=== PATIENT | male | born 1950 ===

== ENCOUNTER 2017-06-15 07:54 | Observation (INO) | payer MEDICARE, BC, OTHER ==
[2017-06-15] MEDS ORDERED: Sodium Chloride 0.9% 1,000 ML IV STA (08:19)
--- NOTE | 2017-06-15 08:44 | CT ---
PROCEDURE: CT HEAD WITHOUT CONTRAST. HISTORY: syncope COMPARISON: None available. TECHNIQUE: Axial computed tomography images were obtained through the head/brain without intravenous contrast. Radiation dose: Total exam DLP = 883.4 mGy-cm. This CT exam was performed using one or more of the following dose reduction techniques: Automated exposure control, adjustment of the mA and/or kV according to patient size, and/or use of iterative reconstruction technique. FINDINGS: HEMORRHAGE: No intracranial hemorrhage. BRAIN: No mass effect or edema. No atrophy or chronic microvascular ischemic changes. VENTRICLES: Unremarkable. No hydrocephalus. CALVARIUM: Unremarkable. PARANASAL SINUSES: Unremarkable as visualized. No significant inflammatory changes. MASTOID AIR CELLS: Unremarkable as visualized. No inflammatory changes. OTHER FINDINGS: None. IMPRESSION: No acute intracranial pathology.
[2017-06-15 09:26] LABS: BASO # 0.1 K/uL (0.0-0.2); BASO % 0.8 % (0.0-2.0); EOS # 0.4 K/uL (0.0-0.7); EOS % 4.8 % (0.0-4.0); HEMOGLOBIN 13.2 g/dL (12.0-18.0); LYMPH # 1.2 K/uL (1.0-4.3); MEAN CELL VOLUME 91.9 fl (80.0-94.0); MEAN CORPUSCULAR HEMOGLOBIN 31.2 pg (27.0-31.0); MEAN CORPUSCULAR HGB CONC 33.9 g/dL (33.0-37.0); MEAN PLATELET VOLUME 7.6 fl (7.2-11.7); MONO # 0.6 K/uL (0.0-0.8); MONO % 7.1 % (0.0-10.0); NEUT # 5.9 K/uL (1.8-7.0); NEUT % 72.3 % (50.0-75.0); RBC 4.23 Mil/uL (4.40-5.90); WHITE BLOOD COUNT 8.1 K/uL (4.8-10.8)
[2017-06-15 09:39] LABS: ALB/GLOB RATIO 1.3 (1.0-2.1); ALBUMIN 4.1 g/dL (3.5-5.0); ALT/SGPT 36 U/L (21-72); AST/SGOT 29 U/L (17-59); BLOOD UREA NITROGEN 25 mg/dl (9-20); CALCIUM 9.9 mg/dL (8.4-10.2); GFR AFRICAN-AMERICAN > 60; GFR NON-AFRICAN AMERICAN > 60
--- NOTE | 2017-06-15 10:44 | ED PDOC ---
Syncope/Near Syncope/Dizziness Time Seen by Provider: 06/15/17 08:11 Chief Complaint (Nursing): Syncope History Per: Patient Onset/Duration Of Symptoms: Hrs (1) Current Symptoms Are (Timing): Better Activity At Onset Of Symptoms: Standing Associated Symptoms Preceding Syncopal Episode: Lightheadedness Fall Associated With With Symptoms: No Additional Complaint(s): Witnessed syncopal episode by lasted 2-3 min. No seizure activity. Pt states felt dizzy/lightheaded prior to episode followed by diaphoresis. Denies chest pain or palpitations or headache. Past Medical History Vital Signs: Last Vital Signs Temp 98 F 06/15/17 09:28 Pulse 52 L 06/15/17 09:28 Resp 18 06/15/17 09:28 BP 124/74 06/15/17 09:28 Pulse Ox 100 06/15/17 09:28 - Medical History PMH: No Chronic Diseases - Family History Family History: States: Unknown Family Hx - Allergies Allergies/Adverse Reactions: Allergies Allergy/AdvReac Type Severity Reaction Status Date / Time No Known Allergies Allergy Verified 06/15/17 08:09 Review of Systems ROS Statement: Except As Marked, All Systems Reviewed And Found Negative Neurological: Positive for: Dizziness, Other (Syncope) Physical Exam - Reviewed Nursing Documentation Reviewed: Yes Vital Signs Reviewed: Yes - Physical Exam Appears: Positive for: Non-toxic, No Acute Distress Head Exam: Positive for: ATRAUMATIC, NORMAL INSPECTION, NORMOCEPHALIC Skin: Positive for: Normal Color, Warm, DRY Eye Exam: Positive for: EOMI, Normal appearance, PERRL ENT: Positive for: Normal ENT Inspection Neck: Positive for: Normal, Painless ROM Cardiovascular/Chest: Positive for: Regular Rate, Rhythm Respiratory: Positive for: CNT, Normal Breath Sounds Gastrointestinal/Abdominal: Positive for: Normal Exam, Bowel Sounds, Soft Back: Positive for: Normal Inspection Extremity: Positive for: Normal ROM Neurologic/Psych: Positive for: Alert, Oriented - Laboratory Results Result Diagrams: 06/15/17 09:15 06/15/17 09:15 - ECG O2 Sat by Pulse Oximetry: 100 Disposition - Clinical Impression Clinical Impression: Syncope - Patient ED Disposition Is Patient to be Admitted: Yes - Disposition Disposition Time: 10:44 Condition: FAIR - Pt Status Changed To: Hospital Disposition Of: Observation - POA Present On Arrival: None
--- NOTE | 2017-06-15 12:58 | RAD ---
HISTORY: syncope COMPARISON: 05/18/2006 TECHNIQUE: Chest PA and lateral FINDINGS: LUNGS: Apical fibronodular changes scarring. PLEURA: Biapical pleural thickening. CARDIOVASCULAR: No radiographic findings to suggest acute or significant cardiovascular disease. OSSEOUS STRUCTURES: No significant abnormalities. VISUALIZED UPPER ABDOMEN: Normal. OTHER FINDINGS: None. IMPRESSION: No active disease. No significant interval change compared to the prior examination(s). Concordant results with the preliminary interpretation rendered by the emergency department physician procedure.
--- NOTE | 2017-06-15 13:58 | CP.PCM.HP ---
<Nicholas Doran - Last Filed: 06/15/17 14:59> History of Present Illness - History of Present Illness History of Present Illness: CC: syncope HPI: 66 y/o man w/ no pmh presents to the ED for witnessed syncope. is at bedside. Patient reports that around 06:30 this morning he got up from bed to use the bathroom but started feeling warm, sweaty, and dizzy. He went towards the window to open it and when he opened the window, he passed out and fell backwards on his . The denies head trauma or other injury to herself or the patient. The patient recalls events prior to and after passing out. The reports that the patient was out for less than 1 minute. The denies tremor, tongue biting, eye rolling, and incontinence. The reports that the patient appeared pale but otherwise was able to sit up on his own. The patient states that this has never happened in the past. The patient denies headaches, chest pain, SOB, nausea, vomiting, diarrhea, dysuria, fever, or recent illness. ED course: vitals: 98.0 F, 52 beats/min, 124/74 mm Hg, resp 18, O2 100% RA CBC: 8.1>13.2/38.9<193 CMP: 140/4.1, 101/27, 25/0.9, glucose 86, AST 29, ALT 36, alk phos 54 troponin: <0.012 CXR: no active disease EKG: sinus bradycardia, no ST segment elevation/depression, no prolonged QT, QRS , or TX, no T wave inversion CT head w/o contrast: no intracranial pathology, no intracranial hemorrhage PMD: Dr. Anthony PMH: none allergies: NKDA meds: multivitamins PSH: nasal polyps removed during childhood FamHx: father age 89, had [place] and stroke in his 50s SOC: denies smoking, alcohol, and drugs ROS: 12 points assessed and negative unless otherwise reported in HPI Present on Admission - Present on Admission Any Indicators Present on Admission: No History of DVT/PE: No History of Uncontrolled Diabetes: No Urinary Catheter: No Decubitus Ulcer Present: No Review of Systems - Review of Systems All systems: reviewed and no additional remarkable complaints except - Constitutional Constitutional: absent: Chills, Fever, Headache - EENT Eyes: absent: Change in Vision - Cardiovascular Cardiovascular: As Per HPI, Diaphoresis. absent: Chest Pain, Edema, Leg Edema, Palpitations - Respiratory Respiratory: absent: Cough, Dyspnea on Exertion, Wheezing - Gastrointestinal Gastrointestinal: absent: Abdominal Pain, Diarrhea, Hematemesis, Hematochezia, Nausea, Vomiting - Genitourinary Genitourinary: absent: Dysuria - Integumentary Integumentary: absent: Rash - Neurological Neurological: As Per HPI. absent: Abnormal Speech, Confusion, Convulsions, Headaches, Loss of Vision, Memory Loss, Vertigo Past Patient History - Past Social History Smoking Status: Never Smoked - PSYCHIATRIC Hx Substance Use: No Meds Allergies/Adverse Reactions: Allergies Allergy/AdvReac Type Severity Reaction Status Date / Time No Known Allergies Allergy Verified 06/15/17 08:09 Physical Exam - Constitutional Appears: No Acute Distress - Head Exam Head Exam: ATRAUMATIC, NORMAL INSPECTION, NORMOCEPHALIC - Eye Exam Eye Exam: Normal appearance - ENT Exam ENT Exam: Mucous Membranes Moist - Neck Exam Neck exam: Positive for: Full Rom. Negative for: Tenderness - Respiratory Exam Respiratory Exam: Clear to Auscultation Bilateral. absent: Decreased Breath Sounds, Rales, Rhonchi, Wheezes, Respiratory Distress - Cardiovascular Exam Cardiovascular Exam: Bradycardia - GI/Abdominal Exam GI & Abdominal Exam: Normal Bowel Sounds, Soft. absent: Distended, Tenderness - Extremities Exam Extremities exam: Positive for: normal capillary refill, normal inspection, pedal pulses present. Negative for: calf tenderness, pedal edema, tenderness - Neurological Exam Neurological exam: Alert, CN II-XII Intact, Oriented x3 - Skin Skin Exam: Dry, Intact, Normal Color, Warm Results - Vital Signs Recent Vital Signs: Last Vital Signs Temp 98 F 06/15/17 11:48 Pulse 65 06/15/17 11:48 Resp 18 06/15/17 11:48 BP 128/75 06/15/17 11:48 Pulse Ox 100 06/15/17 11:48 - Labs Result Diagrams: 06/15/17 09:15 06/15/17 09:15 Labs: Laboratory Results - last 24 hr 06/15/17 06/15/17 06/15/17 08:09 09:15 09:15 WBC 8.1 RBC 4.23 L Hgb 13.2 Hct 38.9 MCV 91.9 MCH 31.2 H MCHC 33.9 RDW 14.0 Plt Count 193 MPV 7.6 Neut % (Auto) 72.3 Lymph % (Auto) 15.0 L [place] % (Auto) 7.1 Eos % (Auto) 4.8 H Baso % (Auto) 0.8 Neut # (Auto) 5.9 Lymph # (Auto) 1.2 [place] # (Auto) 0.6 Eos # (Auto) 0.4 Baso # (Auto) 0.1 Sodium 140 Potassium 4.1 Chloride 101 Carbon Dioxide 27 Anion Gap 16 BUN 25 H Creatinine 0.9 Est GFR ( Amer) > 60 Est GFR (Non-Af Amer) > 60 POC Glucose (mg/dL) 79 Random Glucose 86 Calcium 9.9 Total Bilirubin 0.6 AST 29 ALT 36 Alkaline Phosphatase 54 Troponin I < 0.0120 Total Protein 7.2 Albumin 4.1 Globulin 3.1 Albumin/Globulin Ratio 1.3 Assessment & Plan - Assessment and Plan (Free Text) Assessment: 66 y/o man w/ no pmh presents to the ED for witnessed syncope. Plan: 1) Syncope -witnessed by -no previous episodes -CBC: 8.1>13.2/38.9<193 -CMP: 140/4.1, 101/27, 25/0.9, glucose 86, AST 29, ALT 36, alk phos 54 -troponin: <0.012 -CXR: no active disease -EKG: sinus bradycardia, no ST segment elevation/depression, no prolonged QT, QRS, or TX, no T wave inversion -CT head w/o contrast: no intracranial pathology, no intracranial hemorrhage -IVF NS 1L 100mL/hr -admit to TELE for observation -f/u carotid dopplers -f/u orthostatic BP Q8h -f/u echocardiogram 2) Prophylactic measures -lovenox 40 mg SC daily -regular diet <Sushil Anthony - Last Filed: 06/16/17 06:52> Results - Vital Signs Recent Vital Signs: Last Vital Signs Temp 97.9 F 06/16/17 05:21 Pulse 67 06/16/17 05:21 Resp 18 06/16/17 05:21 BP 135/83 06/16/17 05:21 Pulse Ox 98 06/16/17 05:21 - Labs Result Diagrams: 06/16/17 05:14 06/16/17 05:14 Labs: Laboratory Results - last 24 hr 06/15/17 06/15/17 06/15/17 08:09 09:15 09:15 WBC 8.1 RBC 4.23 L Hgb 13.2 Hct 38.9 MCV 91.9 MCH 31.2 H MCHC 33.9 RDW 14.0 Plt Count 193 MPV 7.6 Neut % (Auto) 72.3 Lymph % (Auto) 15.0 L [place] % (Auto) 7.1 Eos % (Auto) 4.8 H Baso % (Auto) 0.8 Neut # (Auto) 5.9 Lymph # (Auto) 1.2 [place] # (Auto) 0.6 Eos # (Auto) 0.4 Baso # (Auto) 0.1 Sodium 140 Potassium 4.1 Chloride 101 Carbon Dioxide 27 Anion Gap 16 BUN 25 H Creatinine 0.9 Est GFR ( Amer) > 60 Est GFR (Non-Af Amer) > 60 POC Glucose (mg/dL) 79 Random Glucose 86 Calcium 9.9 Total Bilirubin 0.6 AST 29 ALT 36 Alkaline Phosphatase 54 Troponin I < 0.0120 Total Protein 7.2 Albumin 4.1 Globulin 3.1 Albumin/Globulin Ratio 1.3 06/16/17 06/16/17 05:14 05:14 WBC 5.5 RBC 3.73 L Hgb 11.7 L Hct 34.0 L MCV 91.0 MCH 31.3 H MCHC 34.4 RDW 13.9 Plt Count 180 MPV 7.7 Neut % (Auto) 55.3 Lymph % (Auto) 29.1 [place] % (Auto) 8.2 Eos % (Auto) 6.5 H Baso % (Auto) 0.9 Neut # (Auto) 3.1 Lymph # (Auto) 1.6 [place] # (Auto) 0.5 Eos # (Auto) 0.4 Baso # (Auto) 0.1 Sodium 143 Potassium 3.9 Chloride 104 Carbon Dioxide 30 Anion Gap 13 BUN 21 H Creatinine 1.0 Est GFR ( Amer) > 60 Est GFR (Non-Af Amer) > 60 POC Glucose (mg/dL) Random Glucose 88 Calcium 8.9 Total Bilirubin 0.3 AST 24 ALT 27 Alkaline Phosphatase 36 L D Troponin I Total Protein 6.2 L Albumin 3.4 L Globulin 2.8 Albumin/Globulin Ratio 1.2 Attending/Attestation - Attestation I have personally seen and examined this patient.: Yes I have fully participated in the care of the patient.: Yes I have reviewed all pertinent clinical information: Yes
--- NOTE | 2017-06-15 16:21 | US ---
PROCEDURE: Duplex ultrasound of the carotid and vertebral arteries. HISTORY: syncope COMPARISON: None available. TECHNIQUE: Grayscale and duplex Doppler evaluation of the cervical carotid and vertebral arteries were performed. The common carotid, carotid bifurcations and cervical ICA and proximal ECA were evaluated. The vertebral arteries were evaluated for gross patency and direction. FINDINGS: RIGHT CAROTID ARTERIES: Common Carotid Artery: Normal. Maximal flow velocity of 61.4 cm/s. Carotid Bifurcation: Normal. Internal Carotid Artery:Normal. Maximal flow velocity of 58.9 cm/s. External Carotid Artery (proximal branches): Normal. Maximal flow velocity of 54.6 cm/s. ICA/CCA Ratio: 1.0 LEFT CAROTID ARTERIES: Common Carotid Artery: Normal. Maximal flow velocity of 68.2 cm/s. Carotid Bifurcation: Normal. Internal Carotid Artery:Normal. Maximal flow velocity of 73.5 cm/s. External Carotid Artery (proximal branches): Normal. Maximal flow velocity of 67.3 cm/s. ICA/CCA Ratio: 1.1 VERTEBRAL ARTERIES: Right Vertebral Artery: Patent. Antegrade flow. Left Vertebral Artery: Patent. Antegrade flow. OTHER FINDINGS: None. IMPRESSION: Per NASCET criteria, less than 50 percent stenosis of the internal carotid arteries bilaterally.
[2017-06-16 06:25] LABS: BASO # 0.1 K/uL (0.0-0.2); BASO % 0.9 % (0.0-2.0); EOS # 0.4 K/uL (0.0-0.7); EOS % 6.5 % (0.0-4.0); HEMOGLOBIN 11.7 g/dL (12.0-18.0); LYMPH # 1.6 K/uL (1.0-4.3); LYMPH % 29.1 % (20.0-40.0); MEAN CORPUSCULAR HEMOGLOBIN 31.3 pg (27.0-31.0); MEAN CORPUSCULAR HGB CONC 34.4 g/dL (33.0-37.0); MEAN PLATELET VOLUME 7.7 fl (7.2-11.7); MONO # 0.5 K/uL (0.0-0.8); MONO % 8.2 % (0.0-10.0); NEUT # 3.1 K/uL (1.8-7.0); NEUT % 55.3 % (50.0-75.0); NRBC % 0.1 % (0.0-0.0); RBC 3.73 Mil/uL (4.40-5.90); RED CELL DISTRIBUTION WIDTH 13.9 % (11.5-14.5); WHITE BLOOD COUNT 5.5 K/uL (4.8-10.8)
[2017-06-16 06:29] LABS: ALB/GLOB RATIO 1.2 (1.0-2.1); ALBUMIN 3.4 g/dL (3.5-5.0); ALT/SGPT 27 U/L (21-72); AST/SGOT 24 U/L (17-59); BLOOD UREA NITROGEN 21 mg/dl (9-20); CALCIUM 8.9 mg/dL (8.4-10.2); GFR AFRICAN-AMERICAN > 60; GFR NON-AFRICAN AMERICAN > 60
--- NOTE | 2017-06-16 08:05 | CP.PCM.PN ---
Subjective - Date & Time of Evaluation Date of Evaluation: 06/16/17 Time of Evaluation: 07:15 - Subjective Subjective: Patient seen and examined at bedside this morning. There were no acute events overnight. The patient is laying comfortably in bed, NAD. The patient denies headaches, chest pain, dizziness, SOB, abdominal pain, nausea, vomiting, diarrhea, dysuria, or fever. Objective - Vital Signs/Intake and Output Vital Signs (last 24 hours): Temp Pulse Resp BP Pulse Ox 97.9 F 67 18 135/83 98 06/16/17 05:21 06/16/17 05:21 06/16/17 05:21 06/16/17 05:21 06/16/17 05:21 - Medications Medications: Current Medications Enoxaparin Sodium (Lovenox) 40 mg SC DAILY VIDAL PRN Reason: Protocol - Labs Labs: 06/16/17 05:14 06/16/17 05:14 - Constitutional Appears: No Acute Distress - Head Exam Head Exam: ATRAUMATIC, NORMAL INSPECTION, NORMOCEPHALIC - Eye Exam Eye Exam: Normal appearance - ENT Exam ENT Exam: Mucous Membranes Moist - Neck Exam Neck Exam: Full ROM, Normal Inspection. absent: Tenderness - Respiratory Exam Respiratory Exam: Clear to Ausculation Bilateral, NORMAL BREATHING PATTERN. absent: Decreased Breath Sounds, Rales, Rhonchi, Wheezes, Respiratory Distress - Cardiovascular Exam Cardiovascular Exam: REGULAR RHYTHM. absent: Tachycardia - GI/Abdominal Exam GI & Abdominal Exam: Soft, Normal Bowel Sounds. absent: Distended, Tenderness - Extremities Exam Extremities Exam: Full ROM, Normal Inspection. absent: Calf Tenderness, Pedal Edema, Tenderness - Neurological Exam Neurological Exam: Alert, Awake, Oriented x3 - Skin Skin Exam: Dry, Intact, Normal Color, Warm. absent: Rash Assessment and Plan - Assessment and Plan (Free Text) Assessment: 66 y/o man w/ no pmh presents to the ED for witnessed syncope. Plan: 1) Syncope -witnessed by -no previous episodes -CBC: 5.5>11.7/34.0<180 -CMP: 143/3.9, 104/30, 21/1.0, glucose 88, AST 24, ALT 27, alk phos 36 -troponin: <0.012 -CXR: no active disease -EKG: sinus bradycardia, no ST segment elevation/depression, no prolonged QT, QRS, or [place], no T wave inversion -CT head w/o contrast: no intracranial pathology, no intracranial hemorrhage -D/C'ed IVF NS 1L 100mL/hr -carotid dopplers: <50% stenosis of carotids bilaterally -f/u orthostatic BP Q8h -f/u echocardiogram -cardiology consulted, Dr. Morales 2) Prophylactic measures -lovenox 40 mg SC daily -regular diet
[2017-06-16 08:33] VITALS: RESP 20
[2017-06-16] MEDS ORDERED: Enoxaparin 40 mg Syringe SC SCH (09:00)
--- NOTE | 2017-06-16 11:31 | CARD ---
APPROVED REPORT EKG Measurement Heart [id number] <Conclusion> Sinus bradycardia Otherwise normal ECG
[2017-06-16 12:34] VITALS: BP 143/83; PULSE 69; TEMP 98.3; O2SAT 95
--- NOTE | 2017-06-16 12:54 | CARD ---
APPROVED REPORT EXAM: Two-dimensional and M-mode echocardiogram with Doppler and color Doppler. Other Information Quality : GoodRhythm : NSR INDICATION Syncope 2D DIMENSIONS IVSd1.05 (0.7-1.1cm)LVDd4.94 (3.9-5.9cm) LVOT Diameter2.23 (1.8-2.4cm)PWd1.12 (0.7-1.1cm) IVSs1.77 (0.8-1.2cm)LVDs3.57 (2.5-4.0cm) FS (%) 27.7 %PWs1.54 (0.8-1.2cm) M-Mode DIMENSIONS Left Atrium (MM)2.52 (2.5-4.0cm)IVSd0.85 (0.7-1.1cm) Aortic Root3.86 (2.2-3.7cm)LVDd5.71 (4.0-5.6cm) Aortic Cusp Exc.1.93 (1.5-2.0cm)PWd0.77 (0.7-1.1cm) IVSs0.95 cmFS (%) 28 % LVDs4.12 (2.0-3.8cm)PWs1.39 cm Mitral Valve MV E Ogvmcqgf57.9cm/sMV DECEL [id number] A Lmduqmbr82.3cm/s MV WRE76jnD/A ratio1.2MVA (PHT)3.33cm2 TDI Lateral E' Peak V14.26cm/sMedial E' Peak V10.10cm/sE/Lateral E'4.6 E/Medial E'6.4 Tricuspid Valve TR Peak Vlxpvooy678ur/sRAP [id number] Peak Gr.15mmHg [id number] LEFT VENTRICLE The left ventricle is normal size. There is normal left ventricular wall thickness. Left ventricle systolic function is normal. The Ejection Fraction is 60-65%. There is normal LV segmental wall motion. Transmitral Doppler flow pattern is Grade I-abnormal relaxation pattern. RIGHT VENTRICLE The right ventricle is normal size. There is normal right ventricular wall thickness. The right ventricular systolic function is normal. ATRIA The left atrium size is normal. The right atrium size is normal. AORTIC VALVE The aortic valve is normal in structure. No aortic regurgitation is present. There is no aortic valvular stenosis. MITRAL VALVE The mitral valve is normal in structure. There is no evidence of mitral valve prolapse. There is no mitral valve stenosis. Mitral regurgitation is mild. TRICUSPID VALVE The tricuspid valve is normal in structure. There is mild tricuspid regurgitation. Right ventricular systolic pressure is estimated at 15 mmHg. There is no pulmonary hypertension. PULMONIC VALVE The pulmonary valve is normal in structure. There is no pulmonic valvular regurgitation. GREAT VESSELS The aortic root is mildly enlarged. The IVC is normal in size and collapses >50% with inspiration. PERICARDIAL EFFUSION The pericardium appears normal. <Conclusion> The left ventricle is normal size. There is normal left ventricular wall thickness. There is normal LV segmental wall motion. Left ventricle systolic function is normal. The Ejection Fraction is 60-65%. Transmitral Doppler flow pattern is Grade I-abnormal relaxation pattern. The aortic root is mildly enlarged.
--- NOTE | 2017-06-16 13:39 | CP.PCM.CON ---
History of Present Illness - History of Present Illness History of Present Illness: This 66-year-old man who has been taking dietary supplements and a multivitamin was brought to the emergency room by emergency clinical laboratory medical director urgently after his called 911 to report that he has had a blackout. The patient describes waking up feeling sweaty and when he stood up from his bed and felt lightheaded. He walked over to the window to open the window and walked back extremely dizzy and fell on the bed. When his tried to revive him there was no response so she called 911. She reports that in a matter of 3 minutes he was sitting up at the edge of the bed feeling lightheaded. There was no twitching or loss of bladder or bowel control. There have not been similar episodes in the past. The patient is extremely active and can walk extensively without any difficulty. He denies any history of hypertension or diabetes. He did not experience any palpitations preceding the syncopal episode. There is no history off diarrhea on the preceding night. He denies missing his dinner the previous night and indicates that he had had enough fluids to drink. The patient has not been hospitalized before and there is no significant past a family history. Physical examination shows a middle aged pleasant man who was alert awake coronary and afebrile. Telemetry shows sinus rhythm at physiological rates. His heart rate was 64 bpm and regular and his blood pressure was 140/70 mmHg lying down and standing up. His pedal pulses were well felt. His jugular venous pressure was not elevated and there was no edema over his lower ex imaging. There were no carotid bruits. The apex wasplaced. The first and second heart sounds were normal. There was no murmur or gallops. Abdomen was soft and liver and spleen were not palpable. His electro-cardial gram showed sinus rhythm with a normal EKG pattern. His echocardiogram showed normal left ventricular diameter in his and systolic function. There was no significant valvulopathy. The aortic root was mildly dilated. His lab data was noted and it was unremarkable. Impression: Syncopal episode. Review of his history and background strongly suggest the possibility of vasovagal episode. I have reassured the patient regarding the findings of his workup. The patient may be allowed to return home and watched as an outpatient. No further intervention is recommended at this juncture. Past Patient History - Past Medical History & Family History Past Medical History?: No - Past Social History Smoking Status: Never Smoked - CARDIAC Hx Cardiac Disorders: No - PULMONARY Hx Respiratory Disorders: No - NEUROLOGICAL Hx Neurological Disorder: No - HEENT Hx HEENT Problems: No - RENAL Hx Chronic Kidney Disease: No - ENDOCRINE/METABOLIC Hx Endocrine Disorders: No - HEMATOLOGICAL/ONCOLOGICAL Hx Blood Disorders: No - INTEGUMENTARY Hx Dermatological Problems: No - MUSCULOSKELETAL/RHEUMATOLOGICAL Hx Musculoskeletal Disorders: No Hx Falls: No - GASTROINTESTINAL Hx Gastrointestinal Disorders: No - GENITOURINARY/GYNECOLOGICAL Hx Genitourinary Disorders: No - PSYCHIATRIC Hx Psychophysiologic Disorder: No Hx Substance Use: No - SURGICAL HISTORY Hx Surgeries: Yes Other/Comment: Nasal Polyp Removal, Colonoscopy - ANESTHESIA Hx Anesthesia: No Hx Anesthesia Reactions: No Hx Malignant Hyperthermia: No Has any member of the family had a problem w/ anesthesia?: No Meds Allergies/Adverse Reactions: Allergies Allergy/AdvReac Type Severity Reaction Status Date / Time No Known Allergies Allergy Verified 06/15/17 08:09 - Medications Medications: Current Medications Enoxaparin Sodium (Lovenox) 40 mg SC DAILY VIDAL PRN Reason: Protocol Last Admin: 06/16/17 09:54 Dose: Not Given Results - Vital Signs Recent Vital Signs: Last Vital Signs Temp 98.3 F 06/16/17 12:00 Pulse 69 06/16/17 12:00 Resp 20 06/16/17 12:00 BP 143/83 06/16/17 12:00 Pulse Ox 95 06/16/17 12:00 - Labs Result Diagrams: 06/16/17 05:14 06/16/17 05:14 Labs: Laboratory Results - last 24 hr 06/16/17 06/16/17 05:14 05:14 WBC 5.5 RBC 3.73 L Hgb 11.7 L Hct 34.0 L MCV 91.0 MCH 31.3 H MCHC 34.4 RDW 13.9 Plt Count 180 MPV 7.7 Neut % (Auto) 55.3 Lymph % (Auto) 29.1 [place] % (Auto) 8.2 Eos % (Auto) 6.5 H Baso % (Auto) 0.9 Neut # (Auto) 3.1 Lymph # (Auto) 1.6 [place] # (Auto) 0.5 Eos # (Auto) 0.4 Baso # (Auto) 0.1 Sodium 143 Potassium 3.9 Chloride 104 Carbon Dioxide 30 Anion Gap 13 BUN 21 H Creatinine 1.0 Est GFR ( Amer) > 60 Est GFR (Non-Af Amer) > 60 Random Glucose 88 Calcium 8.9 Total Bilirubin 0.3 AST 24 ALT 27 Alkaline Phosphatase 36 L D Total Protein 6.2 L Albumin 3.4 L Globulin 2.8 Albumin/Globulin Ratio 1.2
--- NOTE | 2017-06-16 14:14 | CP.PCM.DIS ---
<Nicholas Doran - Last Filed: 06/16/17 14:15> Provider - Provider Date of Admission: 06/15/17 10:41 Attending physician: Sushil Anthony MD Time Spent in preparation of Discharge (in minutes): 15 Diagnosis - Discharge Diagnosis (1) Syncope Status: Acute Hospital Course - Lab Results Lab Results: Most Recent Lab Values WBC 5.5 K/uL (4.8-10.8) 06/16/17 05:14 RBC 3.73 Mil/uL (4.40-5.90) L 06/16/17 05:14 Hgb 11.7 g/dL (12.0-18.0) L 06/16/17 05:14 Hct 34.0 % (35.0-51.0) L 06/16/17 05:14 MCV 91.0 fl (80.0-94.0) 06/16/17 05:14 MCH 31.3 pg (27.0-31.0) H 06/16/17 05:14 MCHC 34.4 g/dL (33.0-37.0) 06/16/17 05:14 RDW 13.9 % (11.5-14.5) 06/16/17 05:14 Plt Count 180 K/uL (130-400) 06/16/17 05:14 MPV 7.7 fl (7.2-11.7) 06/16/17 05:14 Neut % (Auto) 55.3 % (50.0-75.0) 06/16/17 05:14 Lymph % (Auto) 29.1 % (20.0-40.0) 06/16/17 05:14 Amite % (Auto) 8.2 % (0.0-10.0) 06/16/17 05:14 Eos % (Auto) 6.5 % (0.0-4.0) H 06/16/17 05:14 Baso % (Auto) 0.9 % (0.0-2.0) 06/16/17 05:14 Neut # (Auto) 3.1 K/uL (1.8-7.0) 06/16/17 05:14 Lymph # (Auto) 1.6 K/uL (1.0-4.3) 06/16/17 05:14 Amite # (Auto) 0.5 K/uL (0.0-0.8) 06/16/17 05:14 Eos # (Auto) 0.4 K/uL (0.0-0.7) 06/16/17 05:14 Baso # (Auto) 0.1 K/uL (0.0-0.2) 06/16/17 05:14 Sodium 143 mmol/l (132-148) 06/16/17 05:14 Potassium 3.9 MMOL/L (3.6-5.0) 06/16/17 05:14 Chloride 104 mmol/L (98-107) 06/16/17 05:14 Carbon Dioxide 30 mmol/L (22-30) 06/16/17 05:14 Anion Gap 13 (10-20) 06/16/17 05:14 BUN 21 mg/dl (9-20) H 06/16/17 05:14 Creatinine 1.0 mg/dl (0.8-1.5) 06/16/17 05:14 Est GFR ( Amer) > 60 06/16/17 05:14 Est GFR (Non-Af Amer) > 60 06/16/17 05:14 POC Glucose (mg/dL) 79 mg/dL (65-110) 06/15/17 08:09 Random Glucose 88 mg/dL (75-110) 06/16/17 05:14 Calcium 8.9 mg/dL (8.4-10.2) 06/16/17 05:14 Total Bilirubin 0.3 mg/dl (0.2-1.3) 06/16/17 05:14 AST 24 U/L (17-59) 06/16/17 05:14 ALT 27 U/L (21-72) 06/16/17 05:14 Alkaline Phosphatase 36 U/L (38-126) L D 06/16/17 05:14 Troponin I < 0.0120 ng/mL (0.00-0.120) 06/15/17 09:15 Total Protein 6.2 G/DL (6.3-8.2) L 06/16/17 05:14 Albumin 3.4 g/dL (3.5-5.0) L 06/16/17 05:14 Globulin 2.8 gm/dL (2.2-3.9) 06/16/17 05:14 Albumin/Globulin Ratio 1.2 (1.0-2.1) 06/16/17 05:14 - Hospital Course Hospital Course: 66 y/o man w/ no pmh presents to the ED for witnessed syncope. The patient denies headaches, chest pain, SOB, nausea, vomiting, diarrhea, dysuria, fever, or recent illness. Patient had CBC which was normal, CMP whiich was normal, negative troponin, EKG which was sinus bradycardia, CXR that was normal, head CT that was normal, carotid US that was normal, and echocardiogram that showed EF of 60-65%. Patient has been asymptomatic and has no complaints. Discharge Exam - Head Exam Head Exam: ATRAUMATIC, NORMAL INSPECTION, NORMOCEPHALIC - Eye Exam Eye Exam: Normal appearance - ENT Exam ENT Exam: Mucous Membranes Moist - Neck Exam Neck exam: Full Rom - Respiratory Exam Respiratory Exam: Clear to PA & Lateral, NORMAL BREATHING PATTERN - Cardiovascular Exam Cardiovascular Exam: REGULAR RHYTHM - GI/Abdominal Exam GI & Abdominal Exam: Normal Bowel Sounds, Soft. absent: Distended, Tenderness - Extremities Exam Extremities exam: full ROM, normal capillary refill, normal inspection - Neurological Exam Neurological exam: Alert, Normal Gait, Oriented x3 - Skin Skin Exam: Dry, Intact, Normal Color, Warm Discharge Plan - Follow Up Plan Condition: GOOD Disposition: HOME/ ROUTINE Instructions: Syncope (DC), Syncope (GEN) Referrals: Sushil Anthony MD [Family Provider] - <Sushil Anthony - Last Filed: 06/19/17 07:07> Provider - Provider Date of Admission: 06/15/17 10:41 Attending physician: Sushil Anthony MD Hospital Course - Lab Results Lab Results: Most Recent Lab Values WBC 5.5 K/uL (4.8-10.8) 06/16/17 05:14 RBC 3.73 Mil/uL (4.40-5.90) L 06/16/17 05:14 Hgb 11.7 g/dL (12.0-18.0) L 06/16/17 05:14 Hct 34.0 % (35.0-51.0) L 06/16/17 05:14 MCV 91.0 fl (80.0-94.0) 06/16/17 05:14 MCH 31.3 pg (27.0-31.0) H 06/16/17 05:14 MCHC 34.4 g/dL (33.0-37.0) 06/16/17 05:14 RDW 13.9 % (11.5-14.5) 06/16/17 05:14 Plt Count 180 K/uL (130-400) 06/16/17 05:14 MPV 7.7 fl (7.2-11.7) 06/16/17 05:14 Neut % (Auto) 55.3 % (50.0-75.0) 06/16/17 05:14 Lymph % (Auto) 29.1 % (20.0-40.0) 06/16/17 05:14 Amite % (Auto) 8.2 % (0.0-10.0) 06/16/17 05:14 Eos % (Auto) 6.5 % (0.0-4.0) H 06/16/17 05:14 Baso % (Auto) 0.9 % (0.0-2.0) 06/16/17 05:14 Neut # (Auto) 3.1 K/uL (1.8-7.0) 06/16/17 05:14 Lymph # (Auto) 1.6 K/uL (1.0-4.3) 06/16/17 05:14 Amite # (Auto) 0.5 K/uL (0.0-0.8) 06/16/17 05:14 Eos # (Auto) 0.4 K/uL (0.0-0.7) 06/16/17 05:14 Baso # (Auto) 0.1 K/uL (0.0-0.2) 06/16/17 05:14 Sodium 143 mmol/l (132-148) 06/16/17 05:14 Potassium 3.9 MMOL/L (3.6-5.0) 06/16/17 05:14 Chloride 104 mmol/L (98-107) 06/16/17 05:14 Carbon Dioxide 30 mmol/L (22-30) 06/16/17 05:14 Anion Gap 13 (10-20) 06/16/17 05:14 BUN 21 mg/dl (9-20) H 06/16/17 05:14 Creatinine 1.0 mg/dl (0.8-1.5) 06/16/17 05:14 Est GFR ( Amer) > 60 06/16/17 05:14 Est GFR (Non-Af Amer) > 60 06/16/17 05:14 POC Glucose (mg/dL) 79 mg/dL (65-110) 06/15/17 08:09 Random Glucose 88 mg/dL (75-110) 06/16/17 05:14 Calcium 8.9 mg/dL (8.4-10.2) 06/16/17 05:14 Total Bilirubin 0.3 mg/dl (0.2-1.3) 06/16/17 05:14 AST 24 U/L (17-59) 06/16/17 05:14 ALT 27 U/L (21-72) 06/16/17 05:14 Alkaline Phosphatase 36 U/L (38-126) L D 06/16/17 05:14 Troponin I < 0.0120 ng/mL (0.00-0.120) 06/15/17 09:15 Total Protein 6.2 G/DL (6.3-8.2) L 06/16/17 05:14 Albumin 3.4 g/dL (3.5-5.0) L 06/16/17 05:14 Globulin 2.8 gm/dL (2.2-3.9) 06/16/17 05:14 Albumin/Globulin Ratio 1.2 (1.0-2.1) 06/16/17 05:14 Attending/Attestation - Attestation I have personally seen and examined this patient.: Yes I have fully participated in the care of the patient.: Yes I have reviewed all pertinent clinical information, including history, physical exam and plan: Yes
== END 2017-06-16 15:39 | disposition home or self-care (01) ==
LOC: H.ER 07:54 → H.ERHOLD 10:41 → H.TEL 22:13
PROVIDERS: ADMIT Family Medicine; ATTEND Family Medicine
DX: R55 Syncope and collapse (principal); W19.XXXA Unspecified fall, initial encounter; Z82.3 Family history of stroke; R42 Dizziness and giddiness
CPT/HCPCS: 36415; 70450; 71046; 80053; 82948; 84484; 85025; 93005; 93306; 93880; 99285; G0378; J7040